=== PATIENT | male | born 1985 ===

== ENCOUNTER 2018-04-23 17:32 | Inpatient (IN) | payer OTHER ==
[2018-04-23] MEDS ORDERED: Morphine 4 MG/ML VIAL IVP STA (18:11)
[2018-04-23] MEDS ORDERED: Sodium Chloride 0.9% 1,000 ML IV STA (18:11)
[2018-04-23] MEDS ORDERED: Dextrose 5%/0.9% NS 1,000 ML IV SCH ×2 (18:15→19:41)
[2018-04-23] MEDS ORDERED: Morphine 4 MG/ML VIAL ONE ×2 (18:25→19:39)
[2018-04-23] MEDS ORDERED: Iohexol 300 100 ML IJ ONE (18:28)
[2018-04-23] MEDS ORDERED: Sodium Chloride 0.9% 50 ML IV ONE (18:28)
[2018-04-23] MEDS: Piperacillin/Tazobact 3.375 GM in Sodium Chloride 0.9% 100 ML IV STA ×2 (18:43→18:50)
[2018-04-23] MEDS ORDERED: Piperacillin/Tazobact 3.375 gm Inj IVPB ONE (18:43)
[2018-04-23 18:44] LABS: BASO % 0.1 % (0.0-2.0); HEMOGLOBIN 15.9 g/dL (12.0-18.0); INR 1.2; LYMPH # 0.8 K/uL (1.0-4.3); MEAN CELL VOLUME 84.7 fl (80.0-94.0); MEAN CORPUSCULAR HEMOGLOBIN 28.6 pg (27.0-31.0); MEAN CORPUSCULAR HGB CONC 33.8 g/dL (33.0-37.0); MEAN PLATELET VOLUME 10.4 fl (7.2-11.7); MONO # 0.8 K/uL (0.0-0.8); MONO % 6.6 % (0.0-10.0); NEUT # 10.9 K/uL (1.8-7.0); NEUT % 87.3 % (50.0-75.0); PLATELET COUNT 179 K/uL (130-400); PROTHROMBIN TIME 13.9 Seconds (9.8-13.1); RBC 5.56 Mil/uL (4.40-5.90); RED CELL DISTRIBUTION WIDTH 13.7 % (11.5-14.5); WHITE BLOOD COUNT 12.5 K/uL (4.8-10.8)
[2018-04-23] MEDS ORDERED: Piperacillin/Tazobact 3.375 GM in Sodium Chloride 0.9% 100 ML IVPB STA (18:46)
[2018-04-23 18:48] LABS: PARTIAL THROMBOPLASTIN TIME 38.3 Seconds (25.6-37.1)
[2018-04-23 18:51] LABS: ALB/GLOB RATIO 1.2 (1.0-2.1); ALBUMIN 4.3 g/dL (3.5-5.0); ALT/SGPT 23 U/L (21-72); AST/SGOT 25 U/L (17-59); BLOOD UREA NITROGEN 16 mg/dl (9-20); GFR NON-AFRICAN AMERICAN > 60; LIPASE 26 U/L (23-300)
--- NOTE | 2018-04-23 18:58 | ED PDOC ---
HPI: Abdomen Time Seen by Provider: 04/23/18 17:49 Chief Complaint (Nursing): Abdominal Pain Chief Complaint (Provider): Abdominal Pain History Per: Patient History/Exam Limitations: no limitations Onset/Duration Of Symptoms: Days (x1) Current Symptoms Are (Timing): Still Present Location Of Pain/Discomfort: LLQ Additional Complaint(s): 33 y/o male with no significant PMHx presents to the ED for evaluation of abdominal pain, onset one day ago. Patient states that at 9PM last night, pain began to become progressively worsen in the RLQ and is now associated with nausea, wretching, fever, chills and loss of appetite. Patient states pain radi ates to the back and groin area but does not radiate to the testicular area. Patient reports pain worsens with walking. Otherwise, patient denies any diarrhea, constipation and taking medications for pain relief. PMD: no provider Past Medical History Reviewed: Historical Data, Nursing Documentation, Vital Signs Vital Signs: Last Vital Signs Temp 102.8 F H 04/23/18 18:42 Pulse 105 H 04/23/18 17:42 Resp 20 04/23/18 17:42 BP 134/66 04/23/18 17:42 Pulse Ox 99 04/23/18 17:42 - Medical History PMH: No Chronic Diseases - Surgical History Surgical History: No Surg Hx - Family History Family History: States: No Known Family Hx - Social History Current smoker - smoking cessation education provided: No Alcohol: Social - Allergies Allergies/Adverse Reactions: Allergies Allergy/AdvReac Type Severity Reaction Status Date / Time No Known Allergies Allergy Verified 04/23/18 17:42 Review of Systems ROS Statement: Except As Marked, All Systems Reviewed And Found Negative (as per HPI) Constitutional: Positive for: Fever, Chills Gastrointestinal: Positive for: Nausea, Abdominal Pain, Other (wretching and loss of appetite). Negative for: Vomiting, Diarrhea, Constipation Genitourinary Male: Positive for: Other (groin pain. No testicular pain.) Musculoskeletal: Positive for: Back Pain Physical Exam - Reviewed Nursing Documentation Reviewed: Yes Vital Signs Reviewed: Yes - Physical Exam Appears: Positive for: In Acute Distress (in acute painful distress) Head Exam: Positive for: ATRAUMATIC, NORMOCEPHALIC Skin: Positive for: Warm, Dry Eye Exam: Positive for: EOMI, PERRL ENT: Positive for: Other (tachy mucous membranes) Neck: Positive for: Painless ROM, Supple Cardiovascular/Chest: Positive for: Tachycardia (with regular rhythm) Respiratory: Positive for: Normal Breath Sounds. Negative for: Respiratory Distress Gastrointestinal/Abdominal: Positive for: Tenderness ((+) McBurney's Point tenderness, (+) PSOAS Sign, (+) Obturator's Sign), Guarding (voluntary guarding in the RLQ). Negative for: Mass, Distended, Rebound Back: Positive for: Normal Inspection. Negative for: Muscle Spasm Extremity: Positive for: Normal ROM. Negative for: Deformity Lymphatic: Positive for: Normal Exam. Negative for: Adenopathy Neurologic/Psych: Positive for: Alert. Negative for: Motor/Sensory Deficits - Laboratory Results Result Diagrams: 04/23/18 18:25 04/23/18 18:25 Lab Results: PT 13.9 Seconds (9.8-13.1) H 04/23/18 18:25 INR 1.2 04/23/18 18:25 APTT 38.3 Seconds (25.6-37.1) H 04/23/18 18:25 Total Bilirubin 0.9 mg/dl (0.2-1.3) 04/23/18 18:25 AST 25 U/L (17-59) 04/23/18 18:25 ALT 23 U/L (21-72) 04/23/18 18:25 Alkaline Phosphatase 89 U/L (38-126) 04/23/18 18:25 Total Protein 8.0 G/DL (6.3-8.2) 04/23/18 18:25 Albumin 4.3 g/dL (3.5-5.0) 04/23/18 18:25 Globulin 3.7 gm/dL (2.2-3.9) 04/23/18 18:25 Albumin/Globulin Ratio 1.2 (1.0-2.1) 04/23/18 18:25 Lipase 26 U/L (23-300) 04/23/18 18:25 - ECG O2 Sat by Pulse Oximetry: 99 (RA) Pulse Ox Interpretation: Normal Medical Decision Making Medical Decision Making: Time: 1819 Impression: Abdominal Pain Differentials include but not limited to Appendicitis, Sepsis, Colitis, Enteritis, Renal Colic, Pyelonephritis and Cystitis Plan: -- Type and Screen -- CT Abd/Pelvis IV Contrast ONLY -- CMP -- Urine Drug Screen -- Lact Acid, Plasma -- Lipase -- NPO Diet -- CBC with Differentials -- PTT -- Prothrombin Time -- Dextrose 5%/0.9% NS IV 100 mls/hr -- Morphine 4 mg IVP -- Tylenol 975 mg PO -- Zosyn 3.375 gm Sodium Chloride 0.9% 100 ml IV -- Zofran Inj 4 mg IVP -- Zosyn 3.375 gm Sodium Chloride 0.9% 100 ml IVPB -- Blood Culture -- Urine Culture -- Urinalysis -- Given location of pain and signs of early sepsis, IV antibiotics initiated. Discussed with rn surgical Dr Harris and Sandi Schaefer PA-C for Dr. Mcguire Time: 1928 CT RESULTS FINDINGS: LUNG BASES: The lung bases appear clear. No pleural effusions are seen. LIVER: Unremarkable. GALLBLADDER AND BILE DUCTS: The gallbladder appears multiseptated.. No radioopaque gallstones are seen. No biliary ductal dilatation is evident. PANCREAS: Unremarkable. SPLEEN: Unremarkable. ADRENAL GLANDS: Unremarkable. KIDNEYS, URETERS, AND BLADDER: The kidneys appear within normal limits. There is no hydronephrosis or hydroureter. No urinary calculi are seen. STOMACH AND BOWEL: Unremarkable appearance of the stomach and bowel. No evidence of bowel obstruction. No evidence suggesting enteritis or colitis. APPENDIX: The appendix is dilated and fluid-filled and contains an appendicolith measuring 6 mm with a smaller appendicolith also suspected. There are inflammatory changes about the appendix as well as the fluid seen at the right flank and the right lower pelvis. Perforated appendix suspected. PERITONEUM: No free fluid. No free air. LYMPH NODES: No lymphadenopathy is evident. VASCULATURE: No evidence of abdominal aortic aneurysm. BONES: No aggressive appearing osseous lesion. No acute osseous pathology evident. IMPRESSION: Evidence of appendicitis with appendicolith and perforated appendix with some free fluid and inflammatory changes at the right lower quadrant of the abdomen and pelvis. Surgical consultation advised. Electronically signed on Apr 23, 2018 7:29:30 PM EST by: Jodri Guaman M.D., Certified by [employer], Diagnostic Radiology -- vice president supply chain, Dr. Harris in the ER evaluating the patient at this time. -- DW pt findings and plan of care. 2000 Pt for OR at 9pm DW Dr Ma Hospitalist for admission. Scribe Attestation: Documented by Stephanie Lam, acting as a scribe for Elva Varghese MD. Provider Scribe Attestation: All medical record entries made by the Scribe were at my direction and personally dictated by me. I have reviewed the chart and agree that the record accurately reflects my personal performance of the history, physical exam, med ical decision making, and the department course for this patient. I have also personally directed, reviewed, and agree with the discharge instructions and disposition. Disposition - Clinical Impression Clinical Impression: Perforated appendicitis, Sepsis - Disposition Disposition Time: 20:00 Condition: GUARDED - Pt Status Changed To: Hospital Disposition Of: Inpatient - Admit Certification Admit to Inpatient:: After my assessment, the patient will require hospitalization for at least two midnights. This is because of the severity of symptoms shown, intensity of services needed, and/or the medical risk in this patient being treated as an outpatient. - POA Present On Arrival: None
[2018-04-23 19:31] LABS: BANDS 1 % (0-2); LYMPHOCYTE 5 % (20-50); MONOCYTE 4 % (0-10); NEUTROPHIL 90 % (42-75); PLATELET ESTIMATE NORMAL (NORMAL); TOTAL CELLS COUNTED 100
[2018-04-23] MEDS ORDERED: Morphine 4 MG/ML VIAL IVP PRN (19:49)
--- NOTE | 2018-04-23 19:58 | CP.PCM.CON ---
History of Present Illness - History of Present Illness History of Present Illness: General Surgery Consult Note: Dr. Mcguire 33M with no significant past medical history presents to [facility] ED with complaints of abdominal pain. Patient reports abdominal pain came on suddenly yesterday night. Initially pain was periumbilical and as time progressed pain began to localize in RLQ. Patient reports nausea and anorexia as well as fever/chills and dysuria. Denies headache/dizziness, chest pain/SOB, palpitations. PMH: none PSurgHx: none Allergies: Denies Fam Hx: non-contributory Review of Systems - Review of Systems Review of Systems: 10 pt ROS unremarkable except as stated in HPI Past Patient History - Past Social History Alcohol: Social - PSYCHIATRIC Hx Substance Use: No - SURGICAL HISTORY Hx Surgeries: No Meds Allergies/Adverse Reactions: Allergies Allergy/AdvReac Type Severity Reaction Status Date / Time No Known Allergies Allergy Verified 04/23/18 17:42 - Medications Medications: Current Medications Acetaminophen (Tylenol 325mg Tab) 650 mg PO Q6 PRN PRN Reason: Fever >100.4 F Dextrose/Sodium Chloride (Dextrose 5%/0.9% Ns 1000 Ml) 1,000 mls @ 150 mls/hr IV .Q6H40M FLACO Piperacillin Sod/Tazobactam (Sod 3.375 gm/ Sodium Chloride) 100 mls @ 100 mls/hr IVPB Q6H FLACO; Protocol Morphine Sulfate (Morphine) 4 mg IVP Q4 PRN PRN Reason: Pain, moderate (4-7) Ondansetron HCl (Zofran Inj) 4 mg IVP Q4 PRN PRN Reason: Nausea/Vomiting Physical Exam - Constitutional Appears: Non-toxic - Head Exam Head Exam: NORMOCEPHALIC - Eye Exam Eye Exam: EOMI, Normal appearance - ENT Exam ENT Exam: Mucous Membranes Dry - Respiratory Exam Respiratory Exam: NORMAL BREATHING PATTERN - Cardiovascular Exam Cardiovascular Exam: Tachycardia, +S1, +S2 - GI/Abdominal Exam GI & Abdominal Exam: Firm, Guarding, Rebound, Tenderness. absent: Distended, Soft Additional comments: generalized tenderness worse in RLQ peritoneal - Neurological Exam Neurological exam: Alert, Oriented x3 - Skin Skin Exam: Dry, Intact, Warm Results - Vital Signs Recent Vital Signs: Last Vital Signs Temp 102.8 F H 04/23/18 18:42 Pulse 117 H 04/23/18 19:13 Resp 23 04/23/18 19:13 BP 146/81 04/23/18 19:13 Pulse Ox 99 04/23/18 19:32 - Labs Result Diagrams: 04/23/18 18:25 04/23/18 18:25 Labs: Laboratory Results - last 24 hr 04/23/18 04/23/18 04/23/18 18:25 18:25 18:25 WBC 12.5 H RBC 5.56 Hgb 15.9 Hct 47.1 MCV 84.7 MCH 28.6 MCHC 33.8 RDW 13.7 Plt Count 179 MPV 10.4 Neut % (Auto) 87.3 H Lymph % (Auto) 6.0 L [place] % (Auto) 6.6 Eos % (Auto) 0.0 Baso % (Auto) 0.1 Neut # (Auto) 10.9 H Lymph # (Auto) 0.8 L [place] # (Auto) 0.8 Eos # (Auto) 0.0 Baso # (Auto) 0.0 Neutrophils % (Manual) 90 H Band Neutrophils % 1 Lymphocytes % (Manual) 5 L Monocytes % (Manual) 4 Platelet Estimate Normal RBC Morphology Normal PT INR APTT Sodium 134 Potassium 3.9 Chloride 91 L Carbon Dioxide 26 Anion Gap 21 H BUN 16 Creatinine 0.9 Est GFR ( Amer) > 60 Est GFR (Non-Af Amer) > 60 Random Glucose 156 H Lactic Acid 1.8 Calcium 9.0 Total Bilirubin 0.9 AST 25 ALT 23 Alkaline Phosphatase 89 Total Protein 8.0 Albumin 4.3 Globulin 3.7 Albumin/Globulin Ratio 1.2 Lipase 26 Blood Type Antibody Screen BBK History Checked 04/23/18 04/23/18 18:25 18:25 WBC RBC Hgb Hct MCV MCH MCHC RDW Plt Count MPV Neut % (Auto) Lymph % (Auto) [place] % (Auto) Eos % (Auto) Baso % (Auto) Neut # (Auto) Lymph # (Auto) [place] # (Auto) Eos # (Auto) Baso # (Auto) Neutrophils % (Manual) Band Neutrophils % Lymphocytes % (Manual) Monocytes % (Manual) Platelet Estimate RBC Morphology PT 13.9 H INR 1.2 APTT 38.3 H Sodium Potassium Chloride Carbon Dioxide Anion Gap BUN Creatinine Est GFR ( Amer) Est GFR (Non-Af Amer) Random Glucose Lactic Acid Calcium Total Bilirubin AST ALT Alkaline Phosphatase Total Protein Albumin Globulin Albumin/Globulin Ratio Lipase Blood Type O POSITIVE Antibody Screen Negative BBK History Checked No verified bt Assessment & Plan - Assessment and Plan (Free Text) Assessment: 33M with acute appendicitis, ?perforated Plan: Admit to medicine service NPO IVF ABx Analgesics prn Anti-emetics prn Anti-pyretic prn Fever>100.4F OR tonight for laparoscopic appendectomy possible open D/w Dr. Maynor Chavira PGY3
[2018-04-23] MEDS: Piperacillin/Tazobact 3.375 GM in Sodium Chloride 0.9% 100 ML IVPB SCH (20:09)
--- NOTE | 2018-04-23 20:40 | CP.PCM.HP ---
<Joe Morales - Last Filed: 04/23/18 21:29> History of Present Illness - History of Present Illness History of Present Illness: CC: Abdominal Pain HPI: Pt is a 32 y/o male with no pmhx presenting to ED for evaluation of acute abdominal pain. States the pain started yesterday after eating fish and has been gradually getting worse. Localizes pain to periumbilical area but now states pain is diffuse and worse in RLQ. He reports having a few episodes of non bloody non billious vomiting and subjective fevers. He denies any bloody or tarry stool, recent alcohol or NSAID intake, or dysuria. Denies any alleviating factors and states pain is aggravated with movement. Has not eating anything s jack 2pm since he has no appetite. PMD: None PMHX: Denies PSurgicalHx: Denies Medications: Denies NKDA FMHx: Denies Social: Denies smoking, alcohol, or illicit drug use Present on Admission - Present on Admission Any Indicators Present on Admission: No Past Patient History - Past Medical History & Family History Past Medical History?: No - Past Social History Alcohol: Social - PSYCHIATRIC Hx Substance Use: No - SURGICAL HISTORY Hx Surgeries: No - ANESTHESIA Hx Anesthesia: No Meds Allergies/Adverse Reactions: Allergies Allergy/AdvReac Type Severity Reaction Status Date / Time No Known Allergies Allergy Verified 04/23/18 17:42 Physical Exam - Constitutional Appears: In Acute Distress (moderately distressed holding abdomen and lying still) - Head Exam Head Exam: NORMAL INSPECTION - Eye Exam Eye Exam: Normal appearance. absent: Scleral icterus - ENT Exam ENT Exam: Mucous Membranes Moist - Respiratory Exam Respiratory Exam: Clear to Auscultation Bilateral. absent: Rales, Wheezes - Cardiovascular Exam Cardiovascular Exam: Tachycardia, +S1, +S2, Systolic Murmur (systolic ejection murmur +2) - GI/Abdominal Exam GI & Abdominal Exam: Firm, Guarding, Normal Bowel Sounds, Rigid, Tenderness (moderately tender to palpation in all quadrants). absent: Hernia, Soft - Extremities Exam Extremities exam: Positive for: normal inspection - Neurological Exam Neurological exam: Alert, Oriented x3 - Psychiatric Exam Psychiatric exam: Anxious - Skin Skin Exam: Normal Color Results - Vital Signs Recent Vital Signs: Last Vital Signs Temp 102.9 F H 04/23/18 20:25 Pulse 119 H 04/23/18 20:25 Resp 28 H 04/23/18 20:25 BP 138/98 H 04/23/18 20:25 Pulse Ox 94 L 04/23/18 20:25 - Labs Result Diagrams: 04/23/18 18:25 04/23/18 18:25 Labs: Laboratory Results - last 24 hr 04/23/18 04/23/18 04/23/18 18:25 18:25 18:25 WBC 12.5 H RBC 5.56 Hgb 15.9 Hct 47.1 MCV 84.7 MCH 28.6 MCHC 33.8 RDW 13.7 Plt Count 179 MPV 10.4 Neut % (Auto) 87.3 H Lymph % (Auto) 6.0 L [place] % (Auto) 6.6 Eos % (Auto) 0.0 Baso % (Auto) 0.1 Neut # (Auto) 10.9 H Lymph # (Auto) 0.8 L [place] # (Auto) 0.8 Eos # (Auto) 0.0 Baso # (Auto) 0.0 Neutrophils % (Manual) 90 H Band Neutrophils % 1 Lymphocytes % (Manual) 5 L Monocytes % (Manual) 4 Platelet Estimate Normal RBC Morphology Normal PT INR APTT Sodium 134 Potassium 3.9 Chloride 91 L Carbon Dioxide 26 Anion Gap 21 H BUN 16 Creatinine 0.9 Est GFR ( Amer) > 60 Est GFR (Non-Af Amer) > 60 Random Glucose 156 H Lactic Acid 1.8 Calcium 9.0 Total Bilirubin 0.9 AST 25 ALT 23 Alkaline Phosphatase 89 Total Protein 8.0 Albumin 4.3 Globulin 3.7 Albumin/Globulin Ratio 1.2 Lipase 26 Blood Type Antibody Screen BBK History Checked 04/23/18 04/23/18 18:25 18:25 WBC RBC Hgb Hct MCV MCH MCHC RDW Plt Count MPV Neut % (Auto) Lymph % (Auto) [place] % (Auto) Eos % (Auto) Baso % (Auto) Neut # (Auto) Lymph # (Auto) [place] # (Auto) Eos # (Auto) Baso # (Auto) Neutrophils % (Manual) Band Neutrophils % Lymphocytes % (Manual) Monocytes % (Manual) Platelet Estimate RBC Morphology PT 13.9 H INR 1.2 APTT 38.3 H Sodium Potassium Chloride Carbon Dioxide Anion Gap BUN Creatinine Est GFR ( Amer) Est GFR (Non-Af Amer) Random Glucose Lactic Acid Calcium Total Bilirubin AST ALT Alkaline Phosphatase Total Protein Albumin Globulin Albumin/Globulin Ratio Lipase Blood Type O POSITIVE Antibody Screen Negative BBK History Checked No verified bt Assessment & Plan - Assessment and Plan (Free Text) Assessment: Pt is a 32 y/o male with no pmhx presenting to ED for evaluation of acute abdominal pain and found to have Perforated Appendicitis. Plan to be taken to OR by Dr. Mcguire for Appendectomy #Appendicitis, acute, perforated -Tachycardic in 120's and in acute distress. BP Stable -S/P 10mg Morphine total and 875 Tylenol for pain and Zofran for n/v in ED -S/P 1L bolus NS and started on IV maintenance fluids -CBC- Leukocytosis 12.5 with necrophilia predominance -CMP: WNL, Lactic acid normal, Lipase wnl -Abdomen Pelvis CT: Evidence of appendicitis perforated with free fluid and inflammatory changes -Started on Zosyn -OR today for appendectomy -NPO -Pain Management as ordered -F/U Bcx and Ucx Discussed with Dr. Anil Corbett, PGY2 <Eusebio Ma D - Last Filed: 04/24/18 08:26> Results - Vital Signs Recent Vital Signs: Last Vital Signs Temp 98.4 F 04/24/18 04:24 Pulse 98 H 04/24/18 04:24 Resp 20 04/24/18 04:24 BP 110/71 04/24/18 04:24 Pulse Ox 99 04/24/18 04:24 - Labs Result Diagrams: 04/24/18 07:00 04/23/18 18:25 Labs: Laboratory Results - last 24 hr 04/23/18 04/23/18 04/23/18 18:25 18:25 18:25 WBC 12.5 H RBC 5.56 Hgb 15.9 Hct 47.1 MCV 84.7 MCH 28.6 MCHC 33.8 RDW 13.7 Plt Count 179 MPV 10.4 Neut % (Auto) 87.3 H Lymph % (Auto) 6.0 L [place] % (Auto) 6.6 Eos % (Auto) 0.0 Baso % (Auto) 0.1 Neut # (Auto) 10.9 H Lymph # (Auto) 0.8 L [place] # (Auto) 0.8 Eos # (Auto) 0.0 Baso # (Auto) 0.0 Neutrophils % (Manual) 90 H Band Neutrophils % 1 Lymphocytes % (Manual) 5 L Monocytes % (Manual) 4 Platelet Estimate Normal RBC Morphology Normal PT INR APTT Sodium 134 Potassium 3.9 Chloride 91 L Carbon Dioxide 26 Anion Gap 21 H BUN 16 Creatinine 0.9 Est GFR ( Amer) > 60 Est GFR (Non-Af Amer) > 60 POC Glucose (mg/dL) Random Glucose 156 H Lactic Acid 1.8 Calcium 9.0 Phosphorus Magnesium Total Bilirubin 0.9 AST 25 ALT 23 Alkaline Phosphatase 89 Total Protein 8.0 Albumin 4.3 Globulin 3.7 Albumin/Globulin Ratio 1.2 Lipase 26 Urine Color Urine Clarity Urine pH Ur Specific Bypro Urine Protein Urine Glucose (UA) Urine Ketones Urine Blood Urine Nitrate Urine Bilirubin Urine Urobilinogen Ur Leukocyte Esterase Urine RBC (Auto) Urine Microscopic WBC Ur Squamous Epith Cells Urine Bacteria Urine Opiates Screen Urine Methadone Screen Ur Barbiturates Screen Ur Phencyclidine Scrn Ur Amphetamines Screen U Benzodiazepines Scrn U Oth Cocaine Metabols U Cannabinoids Screen Blood Type Blood Type Confirm Antibody Screen BBK History Checked 04/23/18 04/23/18 04/23/18 18:25 18:25 19:10 WBC RBC Hgb Hct MCV MCH MCHC RDW Plt Count MPV Neut % (Auto) Lymph % (Auto) [place] % (Auto) Eos % (Auto) Baso % (Auto) Neut # (Auto) Lymph # (Auto) [place] # (Auto) Eos # (Auto) Baso # (Auto) Neutrophils % (Manual) Band Neutrophils % Lymphocytes % (Manual) Monocytes % (Manual) Platelet Estimate RBC Morphology PT 13.9 H INR 1.2 APTT 38.3 H Sodium Potassium Chloride Carbon Dioxide Anion Gap BUN Creatinine Est GFR ( Amer) Est GFR (Non-Af Amer) POC Glucose (mg/dL) Random Glucose Lactic Acid Calcium Phosphorus Magnesium Total Bilirubin AST ALT Alkaline Phosphatase Total Protein Albumin Globulin Albumin/Globulin Ratio Lipase Urine Color Urine Clarity Urine pH Ur Specific Bypro Urine Protein Urine Glucose (UA) Urine Ketones Urine Blood Urine Nitrate Urine Bilirubin Urine Urobilinogen Ur Leukocyte Esterase Urine RBC (Auto) Urine Microscopic WBC Ur Squamous Epith Cells Urine Bacteria Urine Opiates Screen Urine Methadone Screen Ur Barbiturates Screen Ur Phencyclidine Scrn Ur Amphetamines Screen U Benzodiazepines Scrn U Oth Cocaine Metabols U Cannabinoids Screen Blood Type O POSITIVE Blood Type Confirm O POSITIVE Antibody Screen Negative BBK History Checked No verified bt 04/23/18 04/24/18 04/24/18 20:36 02:30 02:45 WBC RBC Hgb Hct MCV MCH MCHC RDW Plt Count MPV Neut % (Auto) Lymph % (Auto) [place] % (Auto) Eos % (Auto) Baso % (Auto) Neut # (Auto) Lymph # (Auto) [place] # (Auto) Eos # (Auto) Baso # (Auto) Neutrophils % (Manual) Band Neutrophils % Lymphocytes % (Manual) Monocytes % (Manual) Platelet Estimate RBC Morphology PT INR APTT Sodium Potassium Chloride Carbon Dioxide Anion Gap BUN Creatinine Est GFR ( Amer) Est GFR (Non-Af Amer) POC Glucose (mg/dL) 143 H Random Glucose Lactic Acid Calcium Phosphorus Magnesium Total Bilirubin AST ALT Alkaline Phosphatase Total Protein Albumin Globulin Albumin/Globulin Ratio Lipase Urine Color Kirstie Urine Clarity Slighty-cloudy Urine pH 6.0 Ur Specific Bypro 1.029 Urine Protein 30 Urine Glucose (UA) Neg Urine Ketones Negative Urine Blood Negative Urine Nitrate Negative Urine Bilirubin Negative Urine Urobilinogen 4.0 Ur Leukocyte Esterase Neg Urine RBC (Auto) 4 H Urine Microscopic WBC 8 H Ur Squamous Epith Cells < 1 Urine Bacteria Rare Urine Opiates Screen Positive H Urine Methadone Screen Negative Ur Barbiturates Screen Negative Ur Phencyclidine Scrn Negative Ur Amphetamines Screen Negative U Benzodiazepines Scrn Positive U Oth Cocaine Metabols Negative U Cannabinoids Screen Negative Blood Type Blood Type Confirm Antibody Screen BBK History Checked 04/24/18 04/24/18 07:00 07:00 WBC 11.7 H RBC 5.07 Hgb 14.4 Hct 43.1 MCV 84.9 MCH 28.5 MCHC 33.5 RDW 13.7 Plt Count 158 MPV 10.7 Neut % (Auto) 87.0 H Lymph % (Auto) 6.3 L [place] % (Auto) 6.6 Eos % (Auto) 0.0 Baso % (Auto) 0.1 Neut # (Auto) 10.2 H Lymph # (Auto) 0.7 L [place] # (Auto) 0.8 Eos # (Auto) 0.0 Baso # (Auto) 0.0 Neutrophils % (Manual) Band Neutrophils % Lymphocytes % (Manual) Monocytes % (Manual) Platelet Estimate RBC Morphology PT INR APTT Sodium Potassium Chloride Carbon Dioxide Anion Gap BUN Creatinine Est GFR ( Amer) Est GFR (Non-Af Amer) POC Glucose (mg/dL) Random Glucose Lactic Acid Calcium Phosphorus 4.0 Magnesium 1.8 Total Bilirubin AST ALT Alkaline Phosphatase Total Protein Albumin Globulin Albumin/Globulin Ratio Lipase Urine Color Urine Clarity Urine pH Ur Specific Bypro Urine Protein Urine Glucose (UA) Urine Ketones Urine Blood Urine Nitrate Urine Bilirubin Urine Urobilinogen Ur Leukocyte Esterase Urine RBC (Auto) Urine Microscopic WBC Ur Squamous Epith Cells Urine Bacteria Urine Opiates Screen Urine Methadone Screen Ur Barbiturates Screen Ur Phencyclidine Scrn Ur Amphetamines Screen U Benzodiazepines Scrn U Oth Cocaine Metabols U Cannabinoids Screen Blood Type Blood Type Confirm Antibody Screen BBK History Checked Attending/Attestation - Attestation I have personally seen and examined this patient.: Yes I have fully participated in the care of the patient.: Yes I have reviewed all pertinent clinical information: Yes Notes (Text): 04/24/18 08:25 Patient seen and examined with resident. Case discussed and agreed with assessment and plan of management.
[2018-04-23] MEDS ORDERED: Bupivacaine 0.5% Inj(30mL) ONE (20:44)
[2018-04-23] MEDS ORDERED: Propofol 10 mg/ml Inj (20 ML) ONE ×2 (21:33→22:44)
[2018-04-23] MEDS ORDERED: Midazolam 2 MG/2 ML VIAL ONE (21:33)
[2018-04-23] MEDS ORDERED: Rocuronium 10 mg/ml (5 ml) ONE (21:35)
[2018-04-23] MEDS ORDERED: Neostigmine 1:1000 (1 mg/ml) Inj ONE (21:43)
[2018-04-23] MEDS ORDERED: Succinylcholine Chloride 20 mg/ml Syr (5 ml) IV ONE (21:46)
[2018-04-23] MEDS ORDERED: Lactated Ringer's 1,000 ML IV ONE (22:03)
[2018-04-23] MEDS ORDERED: Esmolol 100 mg/10ml Inj IV ONE (22:18)
[2018-04-23] MEDS ORDERED: Dexamethasone 4 mg/1 ml ONE (22:26)
--- NOTE | 2018-04-23 23:18 | PCM.SURG1 ---
<Tanner Harris - Last Filed: 04/23/18 23:17> Surgeon's Initial Post Op Note - Surgeon's Notes Surgeon: Dr. Mcguire Solutions Engineer: Dr. Harris PGY3 Type of Anesthesia: General Endo Pre-Operative Diagnosis: acute appendicitis Operative Findings: perforated gangrenous appendicitis Post-Operative Diagnosis: perforated gangrenous appendicitis Operation Performed: laparoscopic appendectomy Specimen/Specimens Removed: appendix Estimated Blood Loss: EBL {In ML}: 5 Blood Products Given: N/A Drains Used: No Drains Post-Op Condition: Good Date of Surgery/Procedure: 04/23/18 Time of Surgery/Procedure: 22:00 <Raheel Mcguire - Last Filed: 04/25/18 10:45> Surgeon's Initial Post Op Note - Surgeon's Notes Operative Findings: purulent peritonitis
[2018-04-23] MEDS ORDERED: HYDROmorphone 0.5 mg/0.5 ml ISec IVP PRN (23:19)
[2018-04-23] MEDS ORDERED: Lactated Ringer's 1,000 ML IV SCH ×2 (23:30→23:44)
[2018-04-24] MEDS: Piperacillin/Tazobact 3.375 GM in Sodium Chloride 0.9% 100 ML IVPB SCH ×4 (01:33→21:29)
[2018-04-24 03:11] LABS: SQUAMOUS EPITHIAL < 1 /hpf (0-5); URINE BACTERIA RARE (<OCC); URINE BILIRUBIN NEGATIVE (NEGATIVE); URINE BLOOD NEGATIVE (NEGATIVE); URINE CLARITY SLIGHTY-CLOUDY (Clear); URINE COLOR AMBER (YELLOW); URINE GLUCOSE (UA) NEG (NEGATIVE); URINE LEUKOCYTE ESTERASE NEG Leu/uL (Negative); URINE PROTEIN 30 mg/dL (NEGATIVE)
[2018-04-24 03:35] LABS: BARBITURATES, UR NEGATIVE (NEGATIVE); BENZODIAZEPINES, UR POSITIVE (NEGATIVE); OPIATES, UR POSITIVE (NEGATIVE); PHENCYCLIDINE, UR NEGATIVE (NEGATIVE)
--- NOTE | 2018-04-24 07:05 | CP.PCM.PN ---
Subjective - Date & Time of Evaluation Date of Evaluation: 04/24/18 Time of Evaluation: 06:30 - Subjective Subjective: Patient seen and examined. No acute events over night. Tmax of 100.4F. Voiding. Denies nausea/vomiting. Abodminal pain much improved. Objective - Vital Signs/Intake and Output Vital Signs (last 24 hours): Temp Pulse Resp BP Pulse Ox 98.4 F 98 H 20 110/71 99 04/24/18 04:24 04/24/18 04:24 04/24/18 04:24 04/24/18 04:24 04/24/18 04:24 Intake and Output: 04/24/18 04/24/18 06:59 18:59 Intake Total 700 Output Total 800 Balance -100 - Medications Medications: Current Medications Acetaminophen (Tylenol 325mg Tab) 650 mg PO Q6 PRN PRN Reason: Fever >100.4 F Piperacillin Sod/Tazobactam (Sod 3.375 gm/ Sodium Chloride) 100 mls @ 100 mls/hr IVPB Q6H [facility]; Protocol Last Admin: 04/24/18 01:33 Dose: 100 mls/hr Lactated Ringer's (Lactated Ringer's) 1,000 mls @ 150 mls/hr IV .[id number] [facility] Last Admin: 04/24/18 03:33 Dose: 150 mls/hr Morphine Sulfate (Morphine) 4 mg IVP Q4 PRN PRN Reason: Pain, moderate (4-7) Ondansetron HCl (Zofran Inj) 4 mg IVP Q4 PRN PRN Reason: Nausea/Vomiting - Labs Labs: 04/23/18 18:25 04/23/18 18:25 PT 13.9 Seconds (9.8-13.1) H 04/23/18 18:25 INR 1.2 04/23/18 18:25 APTT 38.3 Seconds (25.6-37.1) H 04/23/18 18:25 - Constitutional Appears: No Acute Distress - Head Exam Head Exam: NORMOCEPHALIC - Eye Exam Eye Exam: Normal appearance - ENT Exam ENT Exam: Mucous Membranes Moist - Respiratory Exam Respiratory Exam: NORMAL BREATHING PATTERN - Cardiovascular Exam Cardiovascular Exam: +S1, +S2 - GI/Abdominal Exam GI & Abdominal Exam: Soft, Tenderness. absent: Firm, Guarding, Rigid, Rebound Additional comments: incisional site tenderness - Neurological Exam Neurological Exam: Alert, Awake, Oriented x3 - Psychiatric Exam Psychiatric exam: Normal Mood - Skin Skin Exam: Dry, Intact, Warm Assessment and Plan - Assessment and Plan (Free Text) Assessment: 32M w perforated appendix s/p laparoscopic appendectomy POD1 Plan: Clear liquid diet IVF ABx Analgesics prn Anti emetics prn Anti pyretics prn for fever>100.4F DVT ppx Further recs per Dr. Maynor Chavira PGY3
[2018-04-24] MEDS ORDERED: Lactated Ringer's 1,000 ML IV SCH (07:06)
[2018-04-24] MEDS ORDERED: Potassium Ch 20mEq in D5-1/2NS 1,000 ML IV SCH (07:30)
[2018-04-24 08:00] LABS: BASO % 0.1 % (0.0-2.0); HEMOGLOBIN 14.4 g/dL (12.0-18.0); LYMPH # 0.7 K/uL (1.0-4.3); LYMPH % 6.3 % (20.0-40.0); MEAN CELL VOLUME 84.9 fl (80.0-94.0); MEAN CORPUSCULAR HEMOGLOBIN 28.5 pg (27.0-31.0); MEAN CORPUSCULAR HGB CONC 33.5 g/dL (33.0-37.0); MEAN PLATELET VOLUME 10.7 fl (7.2-11.7); MONO # 0.8 K/uL (0.0-0.8); MONO % 6.6 % (0.0-10.0); NEUT # 10.2 K/uL (1.8-7.0); RBC 5.07 Mil/uL (4.40-5.90); RED CELL DISTRIBUTION WIDTH 13.7 % (11.5-14.5); WHITE BLOOD COUNT 11.7 K/uL (4.8-10.8)
[2018-04-24 08:58] LABS: BLOOD UREA NITROGEN 13 mg/dl (9-20); CALCIUM 8.8 mg/dL (8.4-10.2); GFR NON-AFRICAN AMERICAN > 60
[2018-04-24] MEDS ORDERED: Magnesium Sulfate 1 gm in D5W 1 GM/100 ML BAG IVPB ONE (09:00)
[2018-04-24] MEDS: Enoxaparin 40 mg Syringe SC SCH (09:46)
--- NOTE | 2018-04-24 10:13 | CT ---
Date of service: 2018-04-23 18:49:34 PROCEDURE: CT Abdomen and Pelvis HISTORY: RLQ pain COMPARISON: None. TECHNIQUE: Contiguous axial images of the abdomen and pelvis of following injection of approximately 95 cc Omnipaque 300 contrast material. Additional 2D sagittal and coronal. Coronal and Sagittal reformats generated. Radiation dose: Total exam DLP = 396.37 mGy-cm. This CT exam was performed using one or more of the following dose reduction techniques: Automated exposure control, adjustment of the mA and/or kV according to patient size, and/or use of iterative reconstruction technique. FINDINGS: LOWER THORAX: Heart size upper limits of normal/borderline enlarged. No significant pericardial effusion. There is a small hiatal hernia with slight wall thickening of the distal esophagus likely due to protrusion gastric mucosa. Esophagitis not excluded. Mild passive/dependent type atelectasis both posterior lower lung [place]. No effusion or basilar pneumothorax. LIVER: Liver exhibits normal size measuring approximately 17.6 cm in CC dimension. Mild fatty hepatic infiltration. No obvious hepatic mass collection or calcification. Portal and splenic veins are opacified. GALLBLADDER AND BILE DUCTS: Gallbladder is physiologically distended.. Phrygian cap present. The no evidence of intraluminal gallbladder calculi. PANCREAS: Unremarkable. No mass. No ductal dilatation. SPLEEN: Unremarkable. No splenomegaly. ADRENALS: Slightly nodular appearing left adrenal gland. KIDNEYS AND URETERS: Kidneys demonstrate relatively symmetric nephrograms. No evidence of nephrolithiasis or hydronephrosis. BLADDER: Urinary bladder incompletely distended which in part accounts for thick-walled appearance. Muscular hypertrophy may contribute. Correlation with urinalysis recommended. REPRODUCTIVE: Unremarkable. APPENDIX: The appendix is dilated with slightly prominent enhancing wall and at 2 internal appendicoliths. Infiltration changes and fluid seen in the adjacent mesentery. Two tiny bubbles of air are also present and could be within or just extrinsically to the lumen of the appendix. Micro perforation must be considered. There is also a a small amount of fluid seen in the pelvis. There also appears to be mild wall thickening of a few adjacent loops of distal small bowel upper likely reactive.. Fluid and infiltration changes extend superiorly along the right paracolic gutter and there also appears to be a small amount of fluid in Morison's pouch. BOWEL: Stomach is distended with liquid food food debris and air. The remaining visualized loops of small bowel exhibit relatively normal contour and caliber not withstanding wall thickening of a few loops of distal small bowel adjacent to the appendix. Stool and air seen throughout the colon. Diverticulosis bulk which arise from the sigmoid colon. No definitive evidence of acute diverticulitis despite infiltration changes and fluid in the pelvis extending adjacent to the sigmoid.. PERITONEUM: As above. LYMPH NODES: Unremarkable. No enlarged lymph nodes. VASCULATURE: Unremarkable. No aortic aneurysm. No aortic atherosclerotic calcification or mural plaque present. BONES: No fracture or destructive lesion. OTHER FINDINGS: None. IMPRESSION: Findings consistent with acute appendicitis. Rule out micro perforation as there are infiltration changes and fluid; additionally, there are 2 or 3 bubbles of air either within the lumen of the appendix or adjacent to the appendix. Diverticulosis without definitive radiographic evidence of acute diverticulitis. Fatty hepatic infiltration
--- NOTE | 2018-04-24 10:30 | CP.PCM.PN ---
Subjective - Date & Time of Evaluation Date of Evaluation: 04/24/18 Time of Evaluation: 08:45 - Subjective Subjective: POD#1 s/p laparascopic appendectomy, gangrenous perforated appendix Overnight: patient had tmax: 102.9, tachycardic this AM : 90-100s. Patient sitting upright in bed, has some pain with movement. Has not eaten yet. No complaints of nausea, vomiting, diarrhea. Clear liquid diet this AM. Objective - Vital Signs/Intake and Output Vital Signs (last 24 hours): Temp Pulse Resp BP Pulse Ox 98.3 F 88 20 106/68 97 04/24/18 08:55 04/24/18 08:55 04/24/18 08:55 04/24/18 08:55 04/24/18 08:55 Intake and Output: 04/24/18 04/24/18 06:59 18:59 Intake Total 700 Output Total 800 Balance -100 - Medications Medications: Current Medications Acetaminophen (Tylenol 325mg Tab) 650 mg PO Q6 PRN PRN Reason: Fever >100.4 F Enoxaparin Sodium (Lovenox) 40 mg SC DAILY [facility]; Protocol Last Admin: 04/24/18 09:46 Dose: 40 mg Piperacillin Sod/Tazobactam (Sod 3.375 gm/ Sodium Chloride) 100 mls @ 100 mls/hr IVPB Q6H [facility]; Protocol Last Admin: 04/24/18 01:33 Dose: 100 mls/hr Potassium Chloride/Dextrose/Sod Cl (Potassium Chl 20 Meq In D5-1/2ns) 1,000 mls @ 75 mls/hr IV .[id number] [facility] Stop: 04/25/18 07:25 Last Admin: 04/24/18 09:47 Dose: 75 mls/hr Morphine Sulfate (Morphine) 4 mg IVP Q4 PRN PRN Reason: Pain, moderate (4-7) Ondansetron HCl (Zofran Inj) 4 mg IVP Q4 PRN PRN Reason: Nausea/Vomiting - Labs Labs: 04/24/18 07:00 04/24/18 07:00 PT 13.9 Seconds (9.8-13.1) H 04/23/18 18:25 INR 1.2 04/23/18 18:25 APTT 38.3 Seconds (25.6-37.1) H 04/23/18 18:25 - Constitutional Appears: No Acute Distress (but appears uncomfortable due to pain) - Head Exam Head Exam: ATRAUMATIC, NORMAL INSPECTION, NORMOCEPHALIC - Eye Exam Eye Exam: Normal appearance - ENT Exam ENT Exam: Mucous Membranes Moist - Respiratory Exam Respiratory Exam: Clear to Ausculation Bilateral, NORMAL BREATHING PATTERN. absent: Rales, Rhonchi, Wheezes - Cardiovascular Exam Cardiovascular Exam: REGULAR RHYTHM, +S1, +S2 - GI/Abdominal Exam Additional comments: slightly distended, no guarding, incisional tenderness. incisions clean and dry. +bowel sounds - Extremities Exam Extremities Exam: absent: Pedal Edema - Neurological Exam Neurological Exam: Alert, Awake - Psychiatric Exam Psychiatric exam: Normal Affect, Normal Mood - Skin Skin Exam: Dry, Normal Color Assessment and Plan - Assessment and Plan (Free Text) Assessment: POD #1 s/p laparascopic appendectomy with perforated gangrenous appendix 32 year old male admitted for appendicitis, s/p lap appy. He had Tmax: 102.9, tachycardia. His leukocytosis is improving. He has some abdominal distention likely due to laparascopic surgery. -Zosyn started 04/23/18 at 1800 -Continue IVF -Tylenol for fever -encouraged to be out of bed and ambulate. D/w Dr. Acuña
[2018-04-24] MEDS ORDERED: Oxycodone/Acetaminophen 5/325 mg Tab PO PRN ×4 (10:35→21:30)
[2018-04-24] MEDS ORDERED: Morphine 4 MG/ML VIAL IVP PRN (10:36)
--- NOTE | 2018-04-24 17:18 | CP.PCM.PN ---
Subjective - Date & Time of Evaluation Date of Evaluation: 04/24/18 Time of Evaluation: 17:16 - Subjective Subjective: General Surgery Pt seen and examined this evening. He reports tolerating regular diet, having BM, and denies chills or fever. Last fever was at midnight of 100.6, his surgery took place around 11pm. Labs and vitals noted PE Gen: Pt sitting in chair in NAD Skin: warm and dry Cardio: s1s2 RRR Lungs: CTA bilaterally Abd: soft, slightly distended, surgical incisions x 3 dermabonded, c/d/i Extr: (-) calf tenderness bilaterally A/P Appendicitis POD 1 s/p lap appendectomy with perforation found intraoperatively Continue regular diet Continue IV abx Pain meds prn D/C ivf as pt with good PO intake Objective - Vital Signs/Intake and Output Vital Signs (last 24 hours): Temp Pulse Resp BP Pulse Ox 98.4 F 82 18 118/78 98 04/24/18 16:42 04/24/18 16:42 04/24/18 16:42 04/24/18 16:42 04/24/18 16:42 Intake and Output: 04/24/18 04/24/18 06:59 18:59 Intake Total 700 Output Total 800 Balance -100 - Medications Medications: Current Medications Acetaminophen (Tylenol 325mg Tab) 650 mg PO Q6 PRN PRN Reason: Fever >100.4 F Enoxaparin Sodium (Lovenox) 40 mg SC DAILY [facility]; Protocol Last Admin: 04/24/18 09:46 Dose: 40 mg Piperacillin Sod/Tazobactam (Sod 3.375 gm/ Sodium Chloride) 100 mls @ 100 mls/hr IVPB Q6H [facility]; Protocol Last Admin: 04/24/18 14:53 Dose: 100 mls/hr Potassium Chloride/Dextrose/Sod Cl (Potassium Chl 20 Meq In D5-1/2ns) 1,000 mls @ 75 mls/hr IV .[id number] [facility] Stop: 04/25/18 07:25 Last Admin: 04/24/18 09:47 Dose: 75 mls/hr Morphine Sulfate (Morphine) 4 mg IVP Q4 PRN PRN Reason: Pain, severe (8-10) Ondansetron HCl (Zofran Inj) 4 mg IVP Q4 PRN PRN Reason: Nausea/Vomiting Oxycodone/Acetaminophen (Percocet 5/325 Mg Tab) 2 tab PO Q4 PRN PRN Reason: Pain, moderate (4-7) Stop: 04/27/18 10:36 Oxycodone/Acetaminophen (Percocet 5/325 Mg Tab) 1 tab PO Q4 PRN PRN Reason: Pain, Mild (1-3) Stop: 04/27/18 10:36 - Labs Labs: 04/24/18 07:00 04/24/18 07:00 PT 13.9 Seconds (9.8-13.1) H 04/23/18 18:25 INR 1.2 04/23/18 18:25 APTT 38.3 Seconds (25.6-37.1) H 04/23/18 18:25
[2018-04-25] MEDS: Piperacillin/Tazobact 3.375 GM in Sodium Chloride 0.9% 100 ML IVPB SCH ×4 (02:00→20:25)
[2018-04-25 05:57] LABS: BASO % 0.2 % (0.0-2.0); EOS % 0.3 % (0.0-4.0); HEMOGLOBIN 13.6 g/dL (12.0-18.0); LYMPH # 1.1 K/uL (1.0-4.3); LYMPH % 10.4 % (20.0-40.0); MEAN CELL VOLUME 86.2 fl (80.0-94.0); MEAN CORPUSCULAR HEMOGLOBIN 28.4 pg (27.0-31.0); MEAN CORPUSCULAR HGB CONC 32.9 g/dL (33.0-37.0); MEAN PLATELET VOLUME 10.5 fl (7.2-11.7); MONO # 0.8 K/uL (0.0-0.8); NEUT % 82.1 % (50.0-75.0); RBC 4.77 Mil/uL (4.40-5.90); RED CELL DISTRIBUTION WIDTH 13.6 % (11.5-14.5); WHITE BLOOD COUNT 10.9 K/uL (4.8-10.8)
[2018-04-25 06:14] LABS: ALBUMIN 3.5 g/dL (3.5-5.0); ALT/SGPT 16 U/L (21-72); AST/SGOT 14 U/L (17-59); BLOOD UREA NITROGEN 14 mg/dl (9-20); GFR NON-AFRICAN AMERICAN > 60
--- NOTE | 2018-04-25 08:20 | OP ---
PROCEDURE DATE: 04/23/18 PREOPERATIVE DIAGNOSIS: Acute appendicitis. POSTOPERATIVE DIAGNOSIS: Gangrenous perforated acute appendicitis with purulent peritonitis. PROCEDURE: Laparoscopic appendectomy and abdominal washout. SURGEON: Raheel Mcguire MD INSPECTOR HAIRSPRING: Tanner Harris DO TYPE OF ANESTHESIA: General endotracheal intubation. IV FLUIDS: Crystalloids. ESTIMATED BLOOD LOSS: 5 mL. INTRAOPERATIVE FINDINGS: Gangrenous perforated acute appendicitis with purulent peritonitis. SPECIMEN: Appendix. BRIEF HISTORY: Mr. Steve Traore is a very pleasant 32-year-old gentleman, who presented to the hospital complaining of 2-day abdominal pain as well as fevers and chills and upon further investigation and a CAT scan, the patient was found to have elevated white blood cell count as well as CAT scan findings significant for acute appendicitis with possible perforation. All the risks and benefits of the procedure were explained to the patient. With the patient having a full understanding of all the risks and benefits involved, informed consent was obtained and the patient was taken to the operating room for above-stated procedure. DESCRIPTION OF PROCEDURE: The patient was brought into the operating room and placed supine on the operating table. Bilateral Flowtron boots were applied to the patient's lower extremities. After successful induction of anesthesia and successful endotracheal intubation by the Anesthesia Team, Jeffery catheter was inserted into the patient's urinary bladder and subsequent to that, the patient's abdomen was shaved and prepped with ChloraPrep stick and draped in a standard surgical fashion. Prior to the beginning of the procedure, a time-out was called in the room and everyone in the room were in agreement. Using a Veress needle, the patient's abdomen was entered at the umbilicus, pneumoperitoneum was achieved with good opening pressures. Once this was accomplished, using an 11-blade scalpel knife, an approximately 5 mm incision was made in a longitudinal fashion in the umbilicus and subsequent to that, 5-mm trocar was introduced into the patient's abdomen. Then, attention was turned to the lower mid abdomen using an 11-blade scalpel knife, another 5-mm incision was made in the transverse fashion in the lower mid abdomen and subsequent to that, another 5-mm trocar was introduced into the patient's abdomen. At this point in time, attention was turned to the left lower quadrant of the patient's abdomen using the 11-blade scalpel knife. Approximately 1 cm incision was made in transverse fashion and subsequent to that, 12 mm trocar was introduced into the patient's abdomen. At this point in time, using two Bhupinder and Geck graspers, appendix was mobilized. Appendix appeared to gangrenous with perforation at the midportion. There was purulent peritonitis with purulent fluid in the right lower and left lower quadrants of the abdomen and in the pelvis. Subsequent to that, using [place] dissector, the window was created between the appendix and the mesoappendix. Appendix was taken right at the base with 45-mm blue load on the endoGIA stapler and once the appendix was transected right at the base next to the cecum, we made a decision to use a harmonic scalpel to take the mesoappendix. Mesoappendix was taken with the Harmonic scalpel. Once the mesoappendix was completely freed up, EndoCatch bag was introduced into the patient's abdomen. Appendix was placed inside of the bag, and the bag was closed. At this point in time, right lower quadrant, pelvis and left lower quadrant were copiously irrigated with sterile saline and the fluids were suctioned out. Subsequent to that, laparoscopy was performed. There appeared to be no other abnormalities in the abdomen and at this point in time, 12-mm trocar together with the EndoCatch bag and appendix were removed from the patient's abdomen and passed off to the [facility] as a specimen. Fascial layer at the left lower quadrant 12-mm port site was closed with one interrupted 0 Vicryl suture on UR-5 needle. Subsequent to that, the patient's abdomen was fully desufflated. The rest of the trocars were removed from the patient's abdomen. The skin was closed with 4-0 Monocryl suture in a running subcuticular fashion. At the end of the procedure, incision sites were infiltrated with Marcaine local anesthetic. The patient's abdomen was washed and dried, and Dermabond was applied to the site of the incisions. Jeffery catheter was removed from the patient's urinary bladder. The patient was successfully extubated by the Anesthesia Team, transferred to the [facility], and taken to the recovery room in a stable condition. At the end of the procedure, all instrument counts, needles, and sponges were correct. Raheel Mcguire MD [facility] # [id number] ANJU
--- NOTE | 2018-04-25 08:31 | CP.PCM.PN ---
<Tanner Harris - Last Filed: 04/25/18 08:28> Subjective - Date & Time of Evaluation Date of Evaluation: 04/25/18 Time of Evaluation: 06:45 - Subjective Subjective: Patient seen and examined. Reports mild incisional site pain. Tolerating regular diet. Denies fever/chills. Having loose BM. Objective - Vital Signs/Intake and Output Vital Signs (last 24 hours): Temp Pulse Resp BP Pulse Ox 99.4 F 89 16 122/75 97 04/25/18 01:00 04/25/18 01:00 04/25/18 01:00 04/25/18 01:00 04/25/18 01:00 - Medications Medications: Current Medications Acetaminophen (Tylenol 325mg Tab) 650 mg PO Q6 PRN PRN Reason: Fever >100.4 F Enoxaparin Sodium (Lovenox) 40 mg SC DAILY [facility]; Protocol Last Admin: 04/24/18 09:46 Dose: 40 mg Piperacillin Sod/Tazobactam (Sod 3.375 gm/ Sodium Chloride) 100 mls @ 100 mls/hr IVPB Q6H [facility]; Protocol Last Admin: 04/25/18 02:00 Dose: 100 mls/hr Ondansetron HCl (Zofran Inj) 4 mg IVP Q4 PRN PRN Reason: Nausea/Vomiting Oxycodone/Acetaminophen (Percocet 5/325 Mg Tab) 1 tab PO Q4 PRN PRN Reason: Pain, moderate (4-7) Stop: 04/27/18 10:36 Last Admin: 04/25/18 01:25 Dose: 1 tab Oxycodone/Acetaminophen (Percocet 5/325 Mg Tab) 2 tab PO Q4 PRN PRN Reason: Pain, severe (8-10) Stop: 04/27/18 10:36 - Labs Labs: 04/25/18 05:20 04/25/18 05:20 PT 13.9 Seconds (9.8-13.1) H 04/23/18 18:25 INR 1.2 04/23/18 18:25 APTT 38.3 Seconds (25.6-37.1) H 04/23/18 18:25 - Constitutional Appears: No Acute Distress - Head Exam Head Exam: NORMOCEPHALIC - Eye Exam Eye Exam: EOMI, Normal appearance - ENT Exam ENT Exam: Mucous Membranes Moist - Respiratory Exam Respiratory Exam: NORMAL BREATHING PATTERN - Cardiovascular Exam Cardiovascular Exam: +S1, +S2 - GI/Abdominal Exam GI & Abdominal Exam: Soft, Tenderness. absent: Distended, Firm, Guarding, Rigid, Rebound - Neurological Exam Neurological Exam: Alert, Awake, Oriented x3 - Psychiatric Exam Psychiatric exam: Normal Mood - Skin Skin Exam: Dry, Intact, Warm Assessment and Plan - Assessment and Plan (Free Text) Assessment: 32M with perforated appendicitis s/p laparoscopic appendectomy POD2 Plan: Regular diet c/w ABx Analgesic prn Antiemetic prn Encourage ambulation DVT ppx Further recs per Dr. Maynor Chavira PGY3 <Raheel Mcguire - Last Filed: 04/25/18 10:42> Subjective - Date & Time of Evaluation Time of Evaluation: 09:40 - Subjective Subjective: Patient was seen and examined at the bedside. Agree with resident's note above. Objective - Vital Signs/Intake and Output Vital Signs (last 24 hours): Temp Pulse Resp BP Pulse Ox 98.4 F 81 20 118/75 96 04/25/18 08:32 04/25/18 08:32 04/25/18 08:32 04/25/18 08:32 04/25/18 08:32 - Medications Medications: Current Medications Acetaminophen (Tylenol 325mg Tab) 650 mg PO Q6 PRN PRN Reason: Fever >100.4 F Enoxaparin Sodium (Lovenox) 40 mg SC DAILY [facility]; Protocol Last Admin: 04/25/18 09:01 Dose: 40 mg Piperacillin Sod/Tazobactam (Sod 3.375 gm/ Sodium Chloride) 100 mls @ 100 mls/ hr IVPB Q6H [facility]; Protocol Last Admin: 04/25/18 09:02 Dose: 100 mls/hr Ondansetron HCl (Zofran Inj) 4 mg IVP Q4 PRN PRN Reason: Nausea/Vomiting Oxycodone/Acetaminophen (Percocet 5/325 Mg Tab) 1 tab PO Q4 PRN PRN Reason: Pain, moderate (4-7) Stop: 04/27/18 10:36 Last Admin: 04/25/18 01:25 Dose: 1 tab Oxycodone/Acetaminophen (Percocet 5/325 Mg Tab) 2 tab PO Q4 PRN PRN Reason: Pain, severe (8-10) Stop: 04/27/18 10:36 - Labs Labs: 04/25/18 05:20 04/25/18 05:20 PT 13.9 Seconds (9.8-13.1) H 04/23/18 18:25 INR 1.2 04/23/18 18:25 APTT 38.3 Seconds (25.6-37.1) H 04/23/18 18:25 - GI/Abdominal Exam Additional comments: soft, mildly tender to palpation, mildly distended, BS+, no rebound, no guarding, incisions clean, no erythema, no drainage, dermobond in place Assessment and Plan - Assessment and Plan (Free Text) Plan: - Insentive spirometry - out of bed and ambulate - Zofran prn - repeat labs in am - Will follow
[2018-04-25] MEDS: Enoxaparin 40 mg Syringe SC SCH (09:01)
--- NOTE | 2018-04-25 13:04 | CP.PCM.PN ---
<Gabriella Paul - Last Filed: 04/25/18 13:08> Subjective - Date & Time of Evaluation Date of Evaluation: 04/25/18 Time of Evaluation: 09:00 - Subjective Subjective: POD#2 s/p laparscopic appendectomy, perforated ganagrenous appendix No acute overnight events. Patient has been afebrile for past 24 hours. Tolerating regular diet. Passing gas, had BM. Incisional pain. Continue IV antibiotics. Objective - Vital Signs/Intake and Output Vital Signs (last 24 hours): Temp Pulse Resp BP Pulse Ox 98.4 F 81 20 118/75 96 04/25/18 08:32 04/25/18 08:32 04/25/18 08:32 04/25/18 08:32 04/25/18 08:32 - Medications Medications: Current Medications Acetaminophen (Tylenol 325mg Tab) 650 mg PO Q6 PRN PRN Reason: Fever >100.4 F Enoxaparin Sodium (Lovenox) 40 mg SC DAILY [facility]; Protocol Last Admin: 04/25/18 09:01 Dose: 40 mg Piperacillin Sod/Tazobactam (Sod 3.375 gm/ Sodium Chloride) 100 mls @ 100 mls/hr IVPB Q6H [facility]; Protocol Last Admin: 04/25/18 09:02 Dose: 100 mls/hr Ondansetron HCl (Zofran Inj) 4 mg IVP Q4 PRN PRN Reason: Nausea/Vomiting Oxycodone/Acetaminophen (Percocet 5/325 Mg Tab) 1 tab PO Q4 PRN PRN Reason: Pain, moderate (4-7) Stop: 04/27/18 10:36 Last Admin: 04/25/18 01:25 Dose: 1 tab Oxycodone/Acetaminophen (Percocet 5/325 Mg Tab) 2 tab PO Q4 PRN PRN Reason: Pain, severe (8-10) Stop: 04/27/18 10:36 - Labs Labs: 04/25/18 05:20 04/25/18 05:20 PT 13.9 Seconds (9.8-13.1) H 04/23/18 18:25 INR 1.2 04/23/18 18:25 APTT 38.3 Seconds (25.6-37.1) H 04/23/18 18:25 - Constitutional Appears: Non-toxic, No Acute Distress - Head Exam Head Exam: ATRAUMATIC, NORMAL INSPECTION, NORMOCEPHALIC - Eye Exam Eye Exam: Normal appearance - Respiratory Exam Respiratory Exam: Clear to Ausculation Bilateral, NORMAL BREATHING PATTERN - Cardiovascular Exam Cardiovascular Exam: REGULAR RHYTHM, +S1, +S2. absent: Murmur - GI/Abdominal Exam GI & Abdominal Exam: Soft, Tenderness (incisional), Normal Bowel Sounds. absent: Distended, Guarding - Neurological Exam Neurological Exam: Alert, Awake - Skin Skin Exam: Dry, Intact, Normal Color, Warm Additional comments: incisions clean and dry and intact Assessment and Plan - Assessment and Plan (Free Text) Assessment: POD #2 s/p laparascopic appendectomy with perforated gangrenous appendix 32 year old male admitted for appendicitis, s/p lap appy. Has been afebrile. His leukocytosis is improving. Passing flatus -Zosyn started 04/23/18 at 1800 -Continue IV abx -Regular diet. -ambulation -Lovenox for DVT ppx Joe PGY-3 <Fatoumata Montoya - Last Filed: 04/25/18 17:09> Objective - Vital Signs/Intake and Output Vital Signs (last 24 hours): Temp Pulse Resp BP Pulse Ox 99.3 F 86 20 119/74 97 04/25/18 16:05 04/25/18 16:05 04/25/18 16:05 04/25/18 16:05 04/25/18 16:05 - Medications Medications: Current Medications Acetaminophen (Tylenol 325mg Tab) 650 mg PO Q6 PRN PRN Reason: Fever >100.4 F Enoxaparin Sodium (Lovenox) 40 mg SC DAILY [facility]; Protocol Last Admin: 04/25/18 09:01 Dose: 40 mg Piperacillin Sod/Tazobactam (Sod 3.375 gm/ Sodium Chloride) 100 mls @ 100 mls/hr IVPB Q6H [facility]; Protocol Last Admin: 04/25/18 14:26 Dose: 100 mls/hr Ondansetron HCl (Zofran Inj) 4 mg IVP Q4 PRN PRN Reason: Nausea/Vomiting Oxycodone/Acetaminophen (Percocet 5/325 Mg Tab) 1 tab PO Q4 PRN PRN Reason: Pain, moderate (4-7) Stop: 04/27/18 10:36 Last Admin: 04/25/18 01:25 Dose: 1 tab Oxycodone/Acetaminophen (Percocet 5/325 Mg Tab) 2 tab PO Q4 PRN PRN Reason: Pain, severe (8-10) Stop: 04/27/18 10:36 - Labs Labs: 04/25/18 05:20 04/25/18 05:20 PT 13.9 Seconds (9.8-13.1) H 04/23/18 18:25 INR 1.2 04/23/18 18:25 APTT 38.3 Seconds (25.6-37.1) H 04/23/18 18:25 Attending/Attestation - Attestation I have personally seen and examined this patient.: Yes I have fully participated in the care of the patient.: Yes I have reviewed all pertinent clinical information, including history, physical exam and plan: Yes Notes (Text): Gangrenous Appendicitis s/p Lap Appendectomy -Pt still had fever yesterday, WBC trending down - will keep pt for more IV antibiotics - IV Zosyn
[2018-04-26] MEDS: Piperacillin/Tazobact 3.375 GM in Sodium Chloride 0.9% 100 ML IVPB SCH ×4 (02:30→20:24)
--- NOTE | 2018-04-26 07:55 | CP.PCM.PN ---
Subjective - Date & Time of Evaluation Date of Evaluation: 04/26/18 Time of Evaluation: 07:00 - Subjective Subjective: Patient seen and examined. No acute events over night. Reports passing flatus and having bowel movements. Denies nausea/vomiting. Denies fever/chills. Objective - Vital Signs/Intake and Output Vital Signs (last 24 hours): Temp Pulse Resp BP Pulse Ox 98.8 F 83 20 112/72 97 04/25/18 23:27 04/25/18 23:27 04/25/18 23:27 04/25/18 23:27 04/25/18 23:27 - Medications Medications: Current Medications Acetaminophen (Tylenol 325mg Tab) 650 mg PO Q6 PRN PRN Reason: Fever >100.4 F Enoxaparin Sodium (Lovenox) 40 mg SC DAILY [facility]; Protocol Last Admin: 04/25/18 09:01 Dose: 40 mg Piperacillin Sod/Tazobactam (Sod 3.375 gm/ Sodium Chloride) 100 mls @ 100 mls/hr IVPB Q6H FLACO; Protocol Last Admin: 04/26/18 02:30 Dose: 100 mls/hr Ondansetron HCl (Zofran Inj) 4 mg IVP Q4 PRN PRN Reason: Nausea/Vomiting Oxycodone/Acetaminophen (Percocet 5/325 Mg Tab) 1 tab PO Q4 PRN PRN Reason: Pain, moderate (4-7) Stop: 04/27/18 10:36 Last Admin: 04/25/18 01:25 Dose: 1 tab Oxycodone/Acetaminophen (Percocet 5/325 Mg Tab) 2 tab PO Q4 PRN PRN Reason: Pain, severe (8-10) Stop: 04/27/18 10:36 - Labs Labs: 04/25/18 05:20 04/25/18 05:20 PT 13.9 Seconds (9.8-13.1) H 04/23/18 18:25 INR 1.2 04/23/18 18:25 APTT 38.3 Seconds (25.6-37.1) H 04/23/18 18:25 - Constitutional Appears: No Acute Distress - Head Exam Head Exam: NORMOCEPHALIC - Eye Exam Eye Exam: EOMI, Normal appearance - ENT Exam ENT Exam: Mucous Membranes Moist - Respiratory Exam Respiratory Exam: NORMAL BREATHING PATTERN - Cardiovascular Exam Cardiovascular Exam: +S1, +S2 - GI/Abdominal Exam GI & Abdominal Exam: Distended, Soft, Tenderness Additional comments: mild distension incision site tenderness - Neurological Exam Neurological Exam: Alert, Awake, Oriented x3 - Psychiatric Exam Psychiatric exam: Normal Mood - Skin Skin Exam: Dry, Intact, Warm Assessment and Plan - Assessment and Plan (Free Text) Assessment: 32M w/ perforated appendicitis s/p laparoscopic appendectomy POD 3 Plan: -Regular diet -ABx -PO analgesic prn -Anti-emetic prn -F/u AM labs -clear for discharge from surgical standpoint -f/u with Dr. Mcguire in 1-2 weeks -Further recs per Dr. Maynor Chavira PGY3
[2018-04-26 08:29] LABS: BASO % 0.3 % (0.0-2.0); EOS # 0.1 K/uL (0.0-0.7); HEMOGLOBIN 13.9 g/dL (12.0-18.0); LYMPH # 1.3 K/uL (1.0-4.3); LYMPH % 13.2 % (20.0-40.0); MEAN CELL VOLUME 87.6 fl (80.0-94.0); MEAN CORPUSCULAR HEMOGLOBIN 28.7 pg (27.0-31.0); MEAN CORPUSCULAR HGB CONC 32.8 g/dL (33.0-37.0); MEAN PLATELET VOLUME 10.3 fl (7.2-11.7); MONO # 0.8 K/uL (0.0-0.8); MONO % 8.4 % (0.0-10.0); NEUT # 7.7 K/uL (1.8-7.0); NEUT % 77.1 % (50.0-75.0); NRBC % 0.1 % (0.0-0.0); RBC 4.83 Mil/uL (4.40-5.90); RED CELL DISTRIBUTION WIDTH 13.7 % (11.5-14.5)
[2018-04-26 08:32] LABS: BLOOD UREA NITROGEN 12 mg/dl (9-20); CALCIUM 9.1 mg/dL (8.4-10.2); GFR NON-AFRICAN AMERICAN > 60
[2018-04-26] MEDS: Enoxaparin 40 mg Syringe SC SCH (09:07)
--- NOTE | 2018-04-26 09:19 | CP.PCM.PN ---
Subjective - Date & Time of Evaluation Date of Evaluation: 04/26/18 Time of Evaluation: 09:05 - Subjective Subjective: General Surgery Pt seen and examined this AM. He reports tolerating diet. (-) chills, Afebrile. (-) n/v. (+) flatus. Pt has been ambulating the hallways without difficulty. Labs and vitals noted. WBC normal PE Gen: Pt found walking the hallways Skin: warm and dry Cardio: s1s2 RRR Lungs: CTA bilaterally Abd: soft, (+) mild distention, dermabonded incisions c/d/i x 3. (+) mild tenderness to deep palpation at RLQ. (-) rebound tenderness Extr: (-) calf tenderness biltaerally A/P Appendicitis POD 3 s/p lap appendectomy with perforation found intraoperatively Continue regular diet Pain meds prn Pt cleared for d/c from surgical standpoint. Pt to go home on augmentin x 10 days. Follow up with Dr. Mcguire in the office in 10-14 days. Objective - Vital Signs/Intake and Output Vital Signs (last 24 hours): Temp Pulse Resp BP Pulse Ox 98.8 F 83 18 122/79 97 04/26/18 08:16 04/26/18 08:16 04/26/18 08:16 04/26/18 08:16 04/26/18 08:16 - Medications Medications: Current Medications Acetaminophen (Tylenol 325mg Tab) 650 mg PO Q6 PRN PRN Reason: Fever >100.4 F Enoxaparin Sodium (Lovenox) 40 mg SC DAILY [facility]; Protocol Last Admin: 04/25/18 09:01 Dose: 40 mg Piperacillin Sod/Tazobactam (Sod 3.375 gm/ Sodium Chloride) 100 mls @ 100 mls/hr IVPB Q6H FLACO; Protocol Last Admin: 04/26/18 02:30 Dose: 100 mls/hr Ondansetron HCl (Zofran Inj) 4 mg IVP Q4 PRN PRN Reason: Nausea/Vomiting Oxycodone/Acetaminophen (Percocet 5/325 Mg Tab) 1 tab PO Q4 PRN PRN Reason: Pain, moderate (4-7) Stop: 04/27/18 10:36 Last Admin: 04/25/18 01:25 Dose: 1 tab Oxycodone/Acetaminophen (Percocet 5/325 Mg Tab) 2 tab PO Q4 PRN PRN Reason: Pain, severe (8-10) Stop: 04/27/18 10:36 - Labs Labs: 04/26/18 08:05 04/26/18 08:05 PT 13.9 Seconds (9.8-13.1) H 04/23/18 18:25 INR 1.2 04/23/18 18:25 APTT 38.3 Seconds (25.6-37.1) H 04/23/18 18:25
--- NOTE | 2018-04-26 12:22 | CP.PCM.DIS ---
<Kirill Dumont - Last Filed: 04/26/18 12:14> Provider - Provider Date of Admission: 04/23/18 20:02 Attending physician: Xavier Dunaway Consults: 04/23/18 20:03 Surgery [General Surgery Consult] Stat Comment: Consulting Provider: Raheel Mcguire Consulting Physician: Raheel Mcguire Reason for Consult: appendicitis Time Spent in preparation of Discharge (in minutes): 30 Hospital Course - Lab Results Lab Results: Micro Results 04/23/18 18:30 Blood Blood Culture - Preliminary NO GROWTH AFTER 48 HOURS 04/23/18 18:45 Blood Blood Culture - Preliminary NO GROWTH AFTER 48 HOURS 04/24/18 09:42 Urine Random Urine Culture - Final No Growth (<1,000 CFU/ML) Most Recent Lab Values WBC 10.0 K/uL (4.8-10.8) 04/26/18 08:05 RBC 4.83 Mil/uL (4.40-5.90) 04/26/18 08:05 Hgb 13.9 g/dL (12.0-18.0) 04/26/18 08:05 Hct 42.3 % (35.0-51.0) 04/26/18 08:05 MCV 87.6 fl (80.0-94.0) 04/26/18 08:05 MCH 28.7 pg (27.0-31.0) 04/26/18 08:05 MCHC 32.8 g/dL (33.0-37.0) L 04/26/18 08:05 RDW 13.7 % (11.5-14.5) 04/26/18 08:05 Plt Count 193 K/uL (130-400) 04/26/18 08:05 MPV 10.3 fl (7.2-11.7) 04/26/18 08:05 Neut % (Auto) 77.1 % (50.0-75.0) H 04/26/18 08:05 Lymph % (Auto) 13.2 % (20.0-40.0) L 04/26/18 08:05 Hooker % (Auto) 8.4 % (0.0-10.0) 04/26/18 08:05 Eos % (Auto) 1.0 % (0.0-4.0) 04/26/18 08:05 Baso % (Auto) 0.3 % (0.0-2.0) 04/26/18 08:05 Neut # (Auto) 7.7 K/uL (1.8-7.0) H 04/26/18 08:05 Lymph # (Auto) 1.3 K/uL (1.0-4.3) 04/26/18 08:05 Hooker # (Auto) 0.8 K/uL (0.0-0.8) 04/26/18 08:05 Eos # (Auto) 0.1 K/uL (0.0-0.7) 04/26/18 08:05 Baso # (Auto) 0.0 K/uL (0.0-0.2) 04/26/18 08:05 Neutrophils % (Manual) 90 % (42-75) H 04/23/18 18:25 Band Neutrophils % 1 % (0-2) 04/23/18 18:25 Lymphocytes % (Manual) 5 % (20-50) L 04/23/18 18:25 Monocytes % (Manual) 4 % (0-10) 04/23/18 18:25 Platelet Estimate Normal (NORMAL) 04/23/18 18:25 RBC Morphology Normal (NORMAL) 04/23/18 18:25 PT 13.9 Seconds (9.8-13.1) H 04/23/18 18:25 INR 1.2 04/23/18 18:25 APTT 38.3 Seconds (25.6-37.1) H 04/23/18 18:25 Sodium 137 mmol/l (132-148) 04/26/18 08:05 Potassium 4.0 MMOL/L (3.6-5.0) 04/26/18 08:05 Chloride 96 mmol/L (98-107) L 04/26/18 08:05 Carbon Dioxide 28 mmol/L (22-30) 04/26/18 08:05 Anion Gap 17 (10-20) 04/26/18 08:05 BUN 12 mg/dl (9-20) 04/26/18 08:05 Creatinine 0.8 mg/dl (0.8-1.5) 04/26/18 08:05 Est GFR ( Amer) > 60 04/26/18 08:05 Est GFR (Non-Af Amer) > 60 04/26/18 08:05 POC Glucose (mg/dL) 143 mg/dL (65-110) H 04/23/18 20:36 Random Glucose 99 mg/dL (75-110) 04/26/18 08:05 Lactic Acid 1.8 mmol/L (0.7-2.1) 04/23/18 18:25 Calcium 9.1 mg/dL (8.4-10.2) 04/26/18 08:05 Phosphorus 4.0 mg/dl (2.5-4.5) 04/24/18 07:00 Magnesium 1.8 MG/DL (1.6-2.3) 04/24/18 07:00 Total Bilirubin 0.6 mg/dl (0.2-1.3) 04/25/18 05:20 AST 14 U/L (17-59) L D 04/25/18 05:20 ALT 16 U/L (21-72) L D 04/25/18 05:20 Alkaline Phosphatase 65 U/L (38-126) 04/25/18 05:20 Total Protein 7.0 G/DL (6.3-8.2) 04/25/18 05:20 Albumin 3.5 g/dL (3.5-5.0) 04/25/18 05:20 Globulin 3.4 gm/dL (2.2-3.9) 04/25/18 05:20 Albumin/Globulin Ratio 1.0 (1.0-2.1) 04/25/18 05:20 Lipase 26 U/L (23-300) 04/23/18 18:25 Urine Color Kirstie (YELLOW) 04/24/18 02:30 Urine Clarity Slighty-cloudy (Clear) 04/24/18 02:30 Urine pH 6.0 (5.0-8.0) 04/24/18 02:30 Ur Specific Lincoln 1.029 (1.003-1.030) 04/24/18 02:30 Urine Protein 30 mg/dL (NEGATIVE) 04/24/18 02:30 Urine Glucose (UA) Neg mg/dL (NEGATIVE) 04/24/18 02:30 Urine Ketones Negative mg/dL (NEGATIVE) 04/24/18 02:30 Urine Blood Negative (NEGATIVE) 04/24/18 02:30 Urine Nitrate Negative (NEGATIVE) 04/24/18 02:30 Urine Bilirubin Negative (NEGATIVE) 04/24/18 02:30 Urine Urobilinogen 4.0 mg/dL (0.2-1.0) 04/24/18 02:30 Ur Leukocyte Esterase Neg Kami/uL (Negative) 04/24/18 02:30 Urine RBC (Auto) 4 /hpf (0-3) H 04/24/18 02:30 Urine Microscopic WBC 8 /hpf (0-5) H 04/24/18 02:30 Ur Squamous Epith Cells < 1 /hpf (0-5) 04/24/18 02:30 Urine Bacteria Rare (<OCC) 04/24/18 02:30 Urine Opiates Screen Positive (NEGATIVE) H 04/24/18 02:45 Urine Methadone Screen Negative (NEGATIVE) 04/24/18 02:45 Ur Barbiturates Screen Negative (NEGATIVE) 04/24/18 02:45 Ur Phencyclidine Scrn Negative (NEGATIVE) 04/24/18 02:45 Ur Amphetamines Screen Negative (NEGATIVE) 04/24/18 02:45 U Benzodiazepines Scrn Positive (NEGATIVE) 04/24/18 02:45 U Oth Cocaine Metabols Negative (NEGATIVE) 04/24/18 02:45 U Cannabinoids Screen Negative (NEGATIVE) 04/24/18 02:45 Blood Type O POSITIVE 04/23/18 18:25 Blood Type Confirm O POSITIVE 04/23/18 19:10 Antibody Screen Negative 04/23/18 18:25 BBK History Checked No verified bt 04/23/18 18:25 - Hospital Course Hospital Course: 32 y/o M patient POD #2 s/p laparascopic appendectomy with perforated gangrenous appendix. Patient was on zosyn started at 04/23. Patient went for Lap appendectomy o 04/23. Post surgery patient tolerated the diet well with no nausea or vomiting. Patient passed flatus and had bowel motion. During his hospital stay patient didn't have any acute events. Patient will be discharged home on PO Augmentin 875 mg Q12 PO for 10 days and flagyl 500 mg Q8 PO for 10 days. Patient to follow up with surgery within 10-14 days upon discharge. Assessment: 32 year old male admitted for appendicitis, POD#2 s/p lap appendectomy. Has been afebrile. His leukocytosis is improving. Passing flatus Plan: #Appendicitis, POD#2 s/p lap appendectomy. -Acute - General surgery consulted, Reccs appreciated. -Patient underwent lap. appendectomy on 04/23. -C/W Regular diet. -encourage ambulation -Rx; PO Augmentin 875 mg Q12 PO for 10 days. -Rx;flagyl 500 mg Q8 PO for 10 days. -Patient to follow up with surgery within 10-14 days upon discharge. Discharge Exam - Head Exam Head Exam: ATRAUMATIC, NORMOCEPHALIC - Eye Exam Eye Exam: EOMI, Normal appearance, PERRL Pupil Exam: NORMAL ACCOMODATION, PERRL - ENT Exam ENT Exam: Mucous Membranes Moist - Neck Exam Neck exam: Full Rom, Normal Inspection - Respiratory Exam Respiratory Exam: Clear to PA & Lateral, NORMAL BREATHING PATTERN, UNREMARKABLE - Cardiovascular Exam Cardiovascular Exam: REGULAR RHYTHM, +S1, +S2 - GI/Abdominal Exam GI & Abdominal Exam: Normal Bowel Sounds, Unremarkable Additional comments: Surgical Wounds of lap appendectomy are C/D/I with no signs of infection or dehiscence. - Extremities Exam Extremities exam: normal capillary refill - Back Exam Back exam: NORMAL INSPECTION - Neurological Exam Neurological exam: Alert, Oriented x3 - Psychiatric Exam Psychiatric exam: Normal Affect - Skin Skin Exam: Dry, Normal Color, Warm Discharge Plan - Discharge Medications Prescriptions: Amoxicillin/Clavulanate [Augmentin 875 MG-125 MG] 1 tab PO Q12 #20 tab Metronidazole [Flagyl] 500 mg PO Q8 #30 tablet RX: oxyCODONE/Acetaminophen [Percocet 5/325 mg Tab] 1 tab PO Q4 PRN #15 tab PRN Reason: Pain, Moderate (4-7) - Follow Up Plan Condition: GUARDED Disposition: HOME/ ROUTINE Instructions: Laceration Repair With Glue (DC), Appendectomy, Laparoscopic Surgery (DC), Laparoscopic Appendectomy (DC), Laparoscopic Appendectomy in Children (DC) Additional Instructions: follow up with surgeon 1 week Referrals: [facility] [Outside] Raheel Mcguire MD [Staff Provider] - <Eusebio Ma - Last Filed: 04/26/18 14:33> Provider - Provider Date of Admission: 04/23/18 20:02 Attending physician: Xavier Dunaway Consults: 04/23/18 20:03 Surgery [General Surgery Consult] Stat Comment: Consulting Provider: Raheel Mcguire Consulting Physician: Raheel Mcguire Reason for Consult: appendicitis Hospital Course - Lab Results Lab Results: Micro Results 04/23/18 18:30 Blood Blood Culture - Preliminary NO GROWTH AFTER 48 HOURS 04/23/18 18:45 Blood Blood Culture - Preliminary NO GROWTH AFTER 48 HOURS 04/24/18 09:42 Urine Random Urine Culture - Final No Growth (<1,000 CFU/ML) Most Recent Lab Values WBC 10.0 K/uL (4.8-10.8) 04/26/18 08:05 RBC 4.83 Mil/uL (4.40-5.90) 04/26/18 08:05 Hgb 13.9 g/dL (12.0-18.0) 04/26/18 08:05 Hct 42.3 % (35.0-51.0) 04/26/18 08:05 MCV 87.6 fl (80.0-94.0) 04/26/18 08:05 MCH 28.7 pg (27.0-31.0) 04/26/18 08:05 MCHC 32.8 g/dL (33.0-37.0) L 04/26/18 08:05 RDW 13.7 % (11.5-14.5) 04/26/18 08:05 Plt Count 193 K/uL (130-400) 04/26/18 08:05 MPV 10.3 fl (7.2-11.7) 04/26/18 08:05 Neut % (Auto) 77.1 % (50.0-75.0) H 04/26/18 08:05 Lymph % (Auto) 13.2 % (20.0-40.0) L 04/26/18 08:05 Hooker % (Auto) 8.4 % (0.0-10.0) 04/26/18 08:05 Eos % (Auto) 1.0 % (0.0-4.0) 04/26/18 08:05 Baso % (Auto) 0.3 % (0.0-2.0) 04/26/18 08:05 Neut # (Auto) 7.7 K/uL (1.8-7.0) H 04/26/18 08:05 Lymph # (Auto) 1.3 K/uL (1.0-4.3) 04/26/18 08:05 Hooker # (Auto) 0.8 K/uL (0.0-0.8) 04/26/18 08:05 Eos # (Auto) 0.1 K/uL (0.0-0.7) 04/26/18 08:05 Baso # (Auto) 0.0 K/uL (0.0-0.2) 04/26/18 08:05 Neutrophils % (Manual) 90 % (42-75) H 04/23/18 18:25 Band Neutrophils % 1 % (0-2) 04/23/18 18:25 Lymphocytes % (Manual) 5 % (20-50) L 04/23/18 18:25 Monocytes % (Manual) 4 % (0-10) 04/23/18 18:25 Platelet Estimate Normal (NORMAL) 04/23/18 18:25 RBC Morphology Normal (NORMAL) 04/23/18 18:25 PT 13.9 Seconds (9.8-13.1) H 04/23/18 18:25 INR 1.2 04/23/18 18:25 APTT 38.3 Seconds (25.6-37.1) H 04/23/18 18:25 Sodium 137 mmol/l (132-148) 04/26/18 08:05 Potassium 4.0 MMOL/L (3.6-5.0) 04/26/18 08:05 Chloride 96 mmol/L (98-107) L 04/26/18 08:05 Carbon Dioxide 28 mmol/L (22-30) 04/26/18 08:05 Anion Gap 17 (10-20) 04/26/18 08:05 BUN 12 mg/dl (9-20) 04/26/18 08:05 Creatinine 0.8 mg/dl (0.8-1.5) 04/26/18 08:05 Est GFR ( Amer) > 60 04/26/18 08:05 Est GFR (Non-Af Amer) > 60 04/26/18 08:05 POC Glucose (mg/dL) 143 mg/dL (65-110) H 04/23/18 20:36 Random Glucose 99 mg/dL (75-110) 04/26/18 08:05 Lactic Acid 1.8 mmol/L (0.7-2.1) 04/23/18 18:25 Calcium 9.1 mg/dL (8.4-10.2) 04/26/18 08:05 Phosphorus 4.0 mg/dl (2.5-4.5) 04/24/18 07:00 Magnesium 1.8 MG/DL (1.6-2.3) 04/24/18 07:00 Total Bilirubin 0.6 mg/dl (0.2-1.3) 04/25/18 05:20 AST 14 U/L (17-59) L D 04/25/18 05:20 ALT 16 U/L (21-72) L D 04/25/18 05:20 Alkaline Phosphatase 65 U/L (38-126) 04/25/18 05:20 Total Protein 7.0 G/DL (6.3-8.2) 04/25/18 05:20 Albumin 3.5 g/dL (3.5-5.0) 04/25/18 05:20 Globulin 3.4 gm/dL (2.2-3.9) 04/25/18 05:20 Albumin/Globulin Ratio 1.0 (1.0-2.1) 04/25/18 05:20 Lipase 26 U/L (23-300) 04/23/18 18:25 Urine Color Kirstie (YELLOW) 04/24/18 02:30 Urine Clarity Slighty-cloudy (Clear) 04/24/18 02:30 Urine pH 6.0 (5.0-8.0) 04/24/18 02:30 Ur Specific Lincoln 1.029 (1.003-1.030) 04/24/18 02:30 Urine Protein 30 mg/dL (NEGATIVE) 04/24/18 02:30 Urine Glucose (UA) Neg mg/dL (NEGATIVE) 04/24/18 02:30 Urine Ketones Negative mg/dL (NEGATIVE) 04/24/18 02:30 Urine Blood Negative (NEGATIVE) 04/24/18 02:30 Urine Nitrate Negative (NEGATIVE) 04/24/18 02:30 Urine Bilirubin Negative (NEGATIVE) 04/24/18 02:30 Urine Urobilinogen 4.0 mg/dL (0.2-1.0) 04/24/18 02:30 Ur Leukocyte Esterase Neg Kami/uL (Negative) 04/24/18 02:30 Urine RBC (Auto) 4 /hpf (0-3) H 04/24/18 02:30 Urine Microscopic WBC 8 /hpf (0-5) H 04/24/18 02:30 Ur Squamous Epith Cells < 1 /hpf (0-5) 04/24/18 02:30 Urine Bacteria Rare (<OCC) 04/24/18 02:30 Urine Opiates Screen Positive (NEGATIVE) H 04/24/18 02:45 Urine Methadone Screen Negative (NEGATIVE) 04/24/18 02:45 Ur Barbiturates Screen Negative (NEGATIVE) 04/24/18 02:45 Ur Phencyclidine Scrn Negative (NEGATIVE) 04/24/18 02:45 Ur Amphetamines Screen Negative (NEGATIVE) 04/24/18 02:45 U Benzodiazepines Scrn Positive (NEGATIVE) 04/24/18 02:45 U Oth Cocaine Metabols Negative (NEGATIVE) 04/24/18 02:45 U Cannabinoids Screen Negative (NEGATIVE) 04/24/18 02:45 Blood Type O POSITIVE 04/23/18 18:25 Blood Type Confirm O POSITIVE 04/23/18 19:10 Antibody Screen Negative 04/23/18 18:25 BBK History Checked No verified bt 04/23/18 18:25 Attending/Attestation - Attestation I have personally seen and examined this patient.: Yes I have fully participated in the care of the patient.: Yes I have reviewed all pertinent clinical information, including history, physical exam and plan: Yes Notes (Text): 04/26/18 14:32 Patient seen and examined with resident. Case discussed and agreed with assessment. Patient discharged in stable condition.
[2018-04-26 16:46] VITALS: BP 122/74; PULSE 94; RESP 20; TEMP 98.1; O2SAT 95
--- NOTE | 2018-04-27 14:00 | CARD ---
APPROVED REPORT Date of service: 04/23/2018 EKG Measurement Heart [id number] <Conclusion> Sinus tachycardia Otherwise normal ECG
== END 2018-04-26 22:00 | disposition home or self-care (01) | DRG 225 ==
LOC: H.ER 17:32 → EDBD 20:02 → H.ERHOLD 20:02 → H.MEDSURG1 23:41
PROVIDERS: ADMIT Internal Medicine; ATTEND Internal Medicine
PROC: 3E1M38Z Irrigation of Peritoneal Cavity using Irrigating Substance, Percutaneous Approach (ICD-10-PCS; 2018-04-23)
PROC: 0DTJ4ZZ Resection of Appendix, Percutaneous Endoscopic Approach (ICD-10-PCS; principal; 2018-04-23 21:30)
DX: K35.33 Acute appendicitis with perforation, localized peritonitis, and gangrene, with abscess (principal); R00.0 Tachycardia, unspecified